=== PATIENT | female | born 1985 | race American Indian/Alaskan Native ===

== ENCOUNTER 2021-08-15 20:47 | Emergency (ER) | payer SELFPAY ==
[2021-08-15 21:43] VITALS: BP 113/75
== END 2021-08-16 19:31 | disposition home or self-care (01) ==
LOC: ED 20:47
DX: K08.89 Other specified disorders of teeth and supporting structures (principal); Z53.21 Procedure and treatment not carried out due to patient leaving prior to being seen by health care provider